=== PATIENT | female | born 2000 | race Caucasian/White ===

== ENCOUNTER 2022-02-17 12:09 | Emergency (ER) | payer MEDICAID ==
[~2022-02-17] VITALS: Ht 160 cm; Wt 42.6 kg
[~2022-02-17 12:09] MED LIST: NO HOME MEDS
[2022-02-17 12:16] VITALS: BP 107/63
== END 2022-02-17 17:11 | disposition left against medical advice (07) ==
LOC: ER 12:10
DX: O26.891 Other specified pregnancy related conditions, first trimester (principal); Z53.21 Procedure and treatment not carried out due to patient leaving prior to being seen by health care provider; Z3A.10 10 weeks gestation of pregnancy

== ENCOUNTER 2022-12-13 13:59 | Emergency (ER) | payer MEDICAID ==
[~2022-12-13] VITALS: Ht 162.6 cm; Wt 50.0 kg
[2022-12-13 14:10] VITALS: BP 110/69
[2022-12-13] MEDS ORDERED: TOBR5DRO2 RIGHTEYE (14:14)
== END 2022-12-13 14:19 | disposition home or self-care (01) ==
LOC: ER 14:00
DX: H10.89 Other conjunctivitis (principal); F32.A Depression, unspecified
CPT/HCPCS: 99283

== ENCOUNTER 2022-12-16 21:39 | Emergency (ER) | payer MEDICAID ==
[~2022-12-16] VITALS: Ht 160 cm; Wt 50.0 kg
[~2022-12-16 21:39] MED LIST changes: +TOBR5DRO2 RIGHTEYE
[2022-12-16 21:40] VITALS: BP 147/75
== END 2022-12-16 23:31 ==
LOC: ER 21:40
DX: Z04.1 Encounter for examination and observation following transport accident (principal); Z79.2 Long term (current) use of antibiotics
CPT/HCPCS: 36415; 84702; 99283